=== PATIENT | male | born 1940 | race Caucasian/White ===

== ENCOUNTER → 2018-11-24 06:04 | Outpatient (CLI) | payer OTHER, SELFPAY ==
--- NOTE | 2018-11-24 | DI.MRI.S_ITS ---
PROCEDURE: MR SHOULDER LT WO CON INDICATIONS: LEFT SHOULDER PAIN WITH DECRASED RANGE OF MOTION TECHNIQUE: Noncontrast oblique coronal T2 fast spin echo with fat saturation, oblique sagittal T1 spin echo and T2 fast spin echo with fat saturation, axial T1 spin echo and T2 fast spin echo with fat saturation through the shoulder. COMPARISON: None. FINDINGS: Image quality: Excellent. Rotator cuff: Tendinosis and low to moderate grade articular and bursal surface partial-thickness tear involving distal supraspinatus at its insertion the humeral head extending to musculotendinous junction is seen. Distal infraspinatus tendinosis is seen. Tendinosis and low-grade intrasubstance partial thickness involving distal subscapularis is seen. No full-thickness rotator cuff tendon rupture. Sagittal images demonstrate no significant muscle atrophy. Bones and bursae: No bone marrow contusions or fractures. 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 Small to moderate amount of joint fluid in subacromial subdeltoid bursal fluid is seen. No gross intra-articular loose body. Subchondral cyst formation in the inferior glenoid is seen. Capsule and soft tissues: In the absence of intra-articular contrast, there is signal abnormality and contour irregularity involving superior anterior labrum 12 to 1:00 position. There is also similar signal abnormality involving inferior labrum at 5 to 6:00 position. The glenohumeral ligaments appear intact. Tendinosis involving proximal intra-articular portion of long head biceps tendon is seen. The rotator interval appears normal, without fibrosis. The coracohumeral ligament is normal in thickness. IMPRESSION: 1. Tendinosis and low to moderate grade articular and bursal surface partial-thickness tear involving distal supraspinatus extending to musculotendinous junction. Distal infraspinatus tendinosis. Tendinosis and low-grade intrasubstance partial-thickness tear involving distal subscapularis. No significant muscle atrophy. 2. Moderate acromioclavicular joint and glenohumeral joint osteoarthritis. 3. Suggestion of superior anterior labral tear at 12 to 1:00 position and anterior-inferior labral tear at 5 to 6:00 position. 4. Tendinosis involving proximal intra-articular portion of long head of biceps tendon. Dictated by: Kelby Carrasquillo M.D. on 11/24/2018 at 9:47 Approved by: Kelby Carrasquillo M.D. on 11/24/2018 at 10:07
== END ==
PROVIDERS: PCP Internal Medicine; Visit Provider Orthopaedic Surgery
DX: M75.42 Impingement syndrome of left shoulder (principal); M75.112 Incomplete rotator cuff tear or rupture of left shoulder, not specified as traumatic; M19.012 Primary osteoarthritis, left shoulder
CPT/HCPCS: 73221